=== PATIENT | male | born 1950 | race Two or more races ===

== ENCOUNTER 2017-06-18 06:15 | Day surgery (SDC) | payer MEDICARE, OTHER ==
[~2017-06-18 06:15] MED LIST: ALFU10TA PO
[2017-06-18] MEDS ORDERED: PROPOFOL 200 MG/20 ML BOTTLE IV ONE (06:16)
[2017-06-18] MEDS ORDERED: LIDOCAINE HCL 1% 20 ML VIAL MC ONE (06:16)
[2017-06-18] MEDS ORDERED: IV NORMAL SALINE 1000 ML BAG IV ONE (06:16)
[2017-06-18] MEDS ORDERED: TETRACAINE HCL 0.5% OPHT DROP 2 ML BOTTLE ONE ×2 (06:43→07:01)
[2017-06-18] MEDS ORDERED: FLURBIPROFEN 0.03% OPHT DROP 2.5 ML BOTTLE ONE (06:44)
[2017-06-18] MEDS ORDERED: CIPROFLOXACIN 0.3% OPHT DROP 2.5 ML BOTTLE ONE (06:44)
[2017-06-18] MEDS ORDERED: CYCLOPENTOLATE 1% OPHT DROP 2 ML BOTTLE ONE (06:44)
[2017-06-18] MEDS ORDERED: PHENYLEPHRINE 2.5% OPHT DROP 2 ML BOTTLE ONE (06:44)
[2017-06-18 06:53] LABS: *BILIRUBIN,URIN NEGATIVE (NEGATIVE); *BLOOD, URINE NEGATIVE (NEGATIVE); *CLARITY,URINE CLEAR (CLEAR); *COLOR,URINE YELLOW (YELLOW); *KETONES,URINE NEGATIVE (NEGATIVE); *PROTEIN,URINE NEGATIVE (NEGATIVE); *UROBILINOGEN,URINE 0.2 E.U./dl (NORMAL); LEUKOCYTE ESTERASE ,URINE NEGATIVE (NEGATIVE); NITRITE, URINE NEGATIVE (NEGATIVE); PH,URINE 5.5 (5.0-8.0); UGLUCOSE NEGATIVE (NEGATIVE)
[2017-06-18] MEDS ORDERED: BALANCED SALT IRRIG SOLN COMB1 500 ML, EPINEPHRINE-PF 1:1000 1 MG IO ONE ×2 (07:00)
[2017-06-18] MEDS ORDERED: NEO/POLYMYX B/DEXAME OPHT OINT 3.5 GM TUBE ONE (07:01)
[2017-06-18] MEDS ORDERED: PILOCARPINE 1% OPHT DROP 15 ML BOTTLE ONE (07:01)
[2017-06-18 07:02] LABS: CREATININE 1.3 mg/dL (0.6-1.3); POTASSIUM 3.9 mmol/L (3.5-5.1)
[2017-06-18] MEDS ORDERED: EPINEPHRINE 1 MG/1 ML AMP ONE (07:02)
[2017-06-18] MEDS ORDERED: BALANCED SALT IRRIG SOLN COMB2 15 ML IRRIG.SOLN ONE (07:02)
[2017-06-18] MEDS ORDERED: BUPIVACAINE PF 0.5% 30 ML VIAL ONE (07:02)
[2017-06-18] MEDS ORDERED: HYALURONATE SODIUM 8.5 MG/0.85 ML DISP.SYRIN ONE ×2 (07:02→07:15)
[2017-06-18] MEDS ORDERED: LIDOCAINE HCL-MPF 1% 5 ML VIAL ONE (07:02)
[2017-06-18 07:14] LABS: BACTERIA,URINE NONE SEEN /HPF (NONE SEEN); RBC,URINE NONE SEEN /HPF (0-3); SQUAMOUS EPITHELIAL CELL,UR NONE SEEN /HPF (NONE SEEN); WBC,URINE 0-3 /HPF (0-3)
[2017-06-18] MEDS ORDERED: MIDAZOLAM HCL 2 MG/2 ML VIAL ONE (08:05)
[2017-06-18 08:06] LABS: HEMATOCRIT 42.5 % (40-50); HEMOGLOBIN 14.3 G/DL (14.0-18.0); MEAN CORPUSCULAR HGB CONC 34 g/dL (32.0-37.0); MEAN CORPUSCULAR VOLUME 86.4 FL (82.0-92.0); PLATELET COUNT (AUTO) 317 K/UL (150-450); RED BLOOD CELL COUNT(AUTO) 4.92 MIL/UL (4.7-6.1); WHITE BLOOD COUNT (AUTO) 9.8 K/UL (4.0-11.2)
[2017-06-18 08:07] LABS: BASOPHILS % (AUTO) 0.8 % (0.0-2.0); EOSINOPHILS % (AUTO) 1.7 % (0.0-7.0); LYMPHOCYTES % (AUTO) 30.5 % (20.5-51.5); MONOCYTES % (AUTO) 5.3 % (0.0-11.0); NEUTROPHILS % (AUTO) 61.7 % (38.5-71.5)
== END 2017-06-18 10:18 | disposition home or self-care (01) ==
LOC: DS 06:15
PROVIDERS: ATTEND Dermatology MOHS-Micrographic Surgery
DX: H25.9 Unspecified age-related cataract (principal); N40.0 Benign prostatic hyperplasia without lower urinary tract symptoms; F11.20 Opioid dependence, uncomplicated; F32.9 Major depressive disorder, single episode, unspecified; F41.9 Anxiety disorder, unspecified; Z87.891 Personal history of nicotine dependence; Z98.890 Other specified postprocedural states
CPT/HCPCS: 36415; 66984; 71010; 80048; 81001; 85025; 85730; 93005; A4663; J0171 ×2; J2250; J3490 ×4; J3590; J7030 ×2; J7321 ×2; V2632

== ENCOUNTER 2017-09-17 06:28 | Day surgery (SDC) | payer MEDICARE, OTHER ==
[2017-09-17] MEDS ORDERED: ONDANSETRON 4 MG/2 ML VIAL IV ONE (06:29)
[2017-09-17] MEDS ORDERED: IV LACTATED RINGERS SOLUTION 1,000 ML BAG IV ONE (06:29)
[2017-09-17 07:07] LABS: BASOPHILS # (AUTO) 0.1 K/uL (0.0-8.0); BASOPHILS % (AUTO) 1.2 % (0.0-2.0); EOSINOPHILS # (AUTO) 0.2 K/uL (0.0-0.7); EOSINOPHILS % (AUTO) 2.3 % (0.0-7.0); HEMATOCRIT 41.9 % (36.7-47.1); HEMOGLOBIN 14.3 g/dL (12.5-16.3); LYMPHOCYTES # (AUTO) 3.4 K/uL (20.0-40.0); LYMPHOCYTES % (AUTO) 35.6 % (20.5-51.5); MEAN CORPUSCULAR HEMOGLOBIN 29.8 uug (23.8-33.4); MEAN CORPUSCULAR HGB CONC 34 g/dL (32.5-36.3); MEAN CORPUSCULAR VOLUME 87.6 fL (73.0-96.2); MONOCYTES # (AUTO) 0.6 K/uL (2.0-10.0); MONOCYTES % (AUTO) 6.2 % (0.0-11.0); NEUTROPHILS # (AUTO) 5.3 K/uL (1.8-8.9); NEUTROPHILS % (AUTO) 54.7 % (38.5-71.5); PLATELET COUNT (AUTO) 292 K/uL (152-348); RED BLOOD CELL COUNT(AUTO) 4.78 MIL/uL (4.06-5.63); WHITE BLOOD COUNT (AUTO) 9.6 K/uL (3.6-10.2)
[2017-09-17 07:12] LABS: *BILIRUBIN,URIN NEGATIVE (NEGATIVE); *BLOOD, URINE NEGATIVE (NEGATIVE); *CLARITY,URINE CLEAR (CLEAR); *COLOR,URINE YELLOW (YELLOW); *KETONES,URINE NEGATIVE (NEGATIVE); *PROTEIN,URINE NEGATIVE (NEGATIVE); *UROBILINOGEN,URINE 0.2 E.U./dl (NORMAL); LEUKOCYTE ESTERASE ,URINE NEGATIVE (NEGATIVE); NITRITE, URINE NEGATIVE (NEGATIVE); PH,URINE 5.5 (5.0-8.0); UGLUCOSE NEGATIVE (NEGATIVE)
[2017-09-17 07:16] LABS: CREATININE 1.3 mg/dL (0.6-1.3)
[2017-09-17] MEDS ORDERED: TETRACAINE HCL 0.5% OPHT DROP 2 ML BOTTLE ONE ×2 (07:23→07:30)
[2017-09-17] MEDS ORDERED: FLURBIPROFEN 0.03% OPHT DROP 2.5 ML BOTTLE ONE (07:23)
[2017-09-17] MEDS ORDERED: CYCLOPENTOLATE 1% OPHT DROP 2 ML BOTTLE ONE (07:24)
[2017-09-17] MEDS ORDERED: KETOROLAC 0.5% OPHT DROP 3 ML BOTTLE ONE (07:24)
[2017-09-17] MEDS ORDERED: PHENYLEPHRINE 2.5% OPHT DROP 2 ML BOTTLE ONE (07:24)
[2017-09-17] MEDS ORDERED: CIPROFLOXACIN 0.3% OPHT DROP 2.5 ML BOTTLE ONE (07:26)
[2017-09-17 07:29] LABS: BACTERIA,URINE FEW /HPF (NONE SEEN); RBC,URINE 0-3 /HPF (0-3); SQUAMOUS EPITHELIAL CELL,UR FEW /HPF (NONE SEEN); WBC,URINE 0-3 /HPF (0-3)
[2017-09-17] MEDS ORDERED: PILOCARPINE 1% OPHT DROP 15 ML BOTTLE ONE (07:30)
[2017-09-17] MEDS ORDERED: EPINEPHRINE 1 MG/1 ML AMP ONE (07:30)
[2017-09-17] MEDS ORDERED: NEO/POLYMYX B/DEXAME OPHT OINT 3.5 GM TUBE ONE (07:30)
[2017-09-17] MEDS ORDERED: LIDOCAINE HCL-MPF 1% 5 ML VIAL ONE (07:30)
[2017-09-17] MEDS ORDERED: BALANCED SALT IRRIG SOLN COMB2 15 ML IRRIG.SOLN ONE (07:30)
[2017-09-17] MEDS ORDERED: BUPIVACAINE PF 0.5% 30 ML VIAL ONE (07:31)
[2017-09-17] MEDS ORDERED: HYALURONATE SODIUM 8.5 MG/0.85 ML DISP.SYRIN ONE (07:31)
[2017-09-17] MEDS ORDERED: BALANCED SALT IRRIG SOLN COMB1 500 ML, EPINEPHRINE-PF 1:1000 1 MG IO ONE ×2 (08:00)
[2017-09-17] MEDS ORDERED: MIDAZOLAM HCL 2 MG/2 ML VIAL ONE (08:59)
[2017-09-17] MEDS ORDERED: FENTANYL CITRATE 100 MCG/2 ML AMPUL ONE (08:59)
== END 2017-09-17 10:45 | disposition home or self-care (01) ==
LOC: DS 06:28
PROVIDERS: ATTEND Dermatology MOHS-Micrographic Surgery
DX: H25.89 Other age-related cataract (principal); N40.0 Benign prostatic hyperplasia without lower urinary tract symptoms
CPT/HCPCS: 36415; 85025; 85730; A4663; J0171; J2250; J2405; J3010; J3490; J3590; J7120; J7321; V2632

== ENCOUNTER 2017-10-22 08:00 | Day surgery (SDC) | payer MEDICARE, OTHER ==
[2017-10-22] MEDS ORDERED: IV NORMAL SALINE 1000 ML BAG IV ONE (08:01)
[2017-10-22] MEDS ORDERED: PROPOFOL 200 MG/20 ML BOTTLE IV ONE (08:01)
[2017-10-22] MEDS ORDERED: ONDANSETRON 4 MG/2 ML VIAL IV ONE (08:01)
[2017-10-22] MEDS ORDERED: TETRACAINE HCL 0.5% OPHT DROP 2 ML BOTTLE ONE (08:26)
[2017-10-22 08:32] LABS: *BILIRUBIN,URIN NEGATIVE (NEGATIVE); *BLOOD, URINE NEGATIVE (NEGATIVE); *CLARITY,URINE CLEAR (CLEAR); *COLOR,URINE YELLOW (YELLOW); *KETONES,URINE NEGATIVE (NEGATIVE); *PROTEIN,URINE NEGATIVE (NEGATIVE); *UROBILINOGEN,URINE 0.2 E.U./dl (NORMAL); LEUKOCYTE ESTERASE ,URINE NEGATIVE (NEGATIVE); NITRITE, URINE NEGATIVE (NEGATIVE); PH,URINE 5.5 (5.0-8.0); UGLUCOSE NEGATIVE (NEGATIVE)
[2017-10-22 08:36] LABS: BASOPHILS # (AUTO) 0.1 K/uL (0.0-8.0); BASOPHILS % (AUTO) 1.4 % (0.0-2.0); EOSINOPHILS # (AUTO) 0.2 K/uL (0.0-0.7); EOSINOPHILS % (AUTO) 2.1 % (0.0-7.0); HEMATOCRIT 39.2 % (36.7-47.1); HEMOGLOBIN 13.5 g/dL (12.5-16.3); LYMPHOCYTES # (AUTO) 2.9 K/uL (20.0-40.0); MEAN CORPUSCULAR HEMOGLOBIN 30.1 uug (23.8-33.4); MEAN CORPUSCULAR HGB CONC 34 g/dL (32.5-36.3); MEAN CORPUSCULAR VOLUME 87.4 fL (73.0-96.2); MONOCYTES # (AUTO) 0.5 K/uL (2.0-10.0); MONOCYTES % (AUTO) 5.5 % (0.0-11.0); NEUTROPHILS # (AUTO) 5.3 K/uL (1.8-8.9); PLATELET COUNT (AUTO) 308 K/uL (152-348); RED BLOOD CELL COUNT(AUTO) 4.48 MIL/uL (4.06-5.63)
[2017-10-22 08:40] LABS: CREATININE 1.1 mg/dL (0.6-1.3); POTASSIUM 4.1 mmol/L (3.5-5.1)
[2017-10-22] MEDS ORDERED: BUPIVACAINE/EPI PF 0.5% 10 ML VIAL ONE (08:44)
[2017-10-22] MEDS ORDERED: EPINEPHRINE 1 MG/1 ML AMP ONE (08:45)
[2017-10-22] MEDS ORDERED: LIDOCAINE HCL 2% 20 ML VIAL ONE (08:45)
[2017-10-22 08:48] LABS: BACTERIA,URINE FEW /HPF (NONE SEEN); RBC,URINE 0-3 /HPF (0-3); SQUAMOUS EPITHELIAL CELL,UR FEW /HPF (NONE SEEN); WBC,URINE 0-3 /HPF (0-3)
[2017-10-22] MEDS ORDERED: BALANCED SALT IRRIG SOLN COMB2 15 ML IRRIG.SOLN ONE (09:35)
[2017-10-22] MEDS ORDERED: FENTANYL CITRATE 100 MCG/2 ML AMPUL ONE (09:36)
[2017-10-22] MEDS ORDERED: MIDAZOLAM HCL 2 MG/2 ML VIAL ONE (09:36)
[2017-10-22] MEDS ORDERED: NEO/POLYMYX B/DEXAME OPHT OINT 3.5 GM TUBE ONE (10:01)
== END 2017-10-22 11:35 | disposition home or self-care (01) ==
LOC: DS 08:00
PROVIDERS: ATTEND Dermatology MOHS-Micrographic Surgery
DX: D17.0 Benign lipomatous neoplasm of skin and subcutaneous tissue of head, face and neck (principal); Z87.891 Personal history of nicotine dependence
CPT/HCPCS: 36415; 85025; 85730; 93005; A4663; J0171; J2250; J2405; J3010; J3490; J7030; J7120

== ENCOUNTER 2019-02-09 10:57 | Emergency (ER) | payer MEDICARE, OTHER ==
[~2019-02-09] VITALS: Ht 170.2 cm; Wt 81.6 kg
[2019-02-09] MEDS ORDERED: IBUP-1957 PO (11:10)
[2019-02-09] MEDS ORDERED: LORAZEPAM 2 MG/1 ML VIAL IV ONE (11:30)
[2019-02-09] MEDS ORDERED: KETAMINE HCL 500 MG/10 ML INJ IV ONE (11:30)
[2019-02-09] MEDS ORDERED: LORAZEPAM 2 MG/1 ML VIAL ONE (11:40)
[2019-02-09] MEDS ORDERED: FENTANYL CITRATE 100 MCG/2 ML AMPUL IV ONE ×2 (11:45→13:30)
[2019-02-09] MEDS ORDERED: FENTANYL CITRATE 100 MCG/2 ML AMPUL ONE ×2 (11:49→13:27)
[2019-02-09 11:52] LABS: BASOPHILS # (AUTO) 0.1 K/uL (0.0-8.0); BASOPHILS % (AUTO) 1.3 % (0.0-2.0); EOSINOPHILS # (AUTO) 0.3 K/uL (0.0-0.7); EOSINOPHILS % (AUTO) 4.4 % (0.0-7.0); HEMATOCRIT 38.7 % (36.7-47.1); HEMOGLOBIN 12.8 g/dL (12.5-16.3); LYMPHOCYTES % (AUTO) 28.1 % (20.5-51.5); MEAN CORPUSCULAR HEMOGLOBIN 29.4 uug (23.8-33.4); MEAN CORPUSCULAR HGB CONC 33 g/dL (32.5-36.3); MONOCYTES # (AUTO) 0.4 K/uL (2.0-10.0); NEUTROPHILS # (AUTO) 4.3 K/uL (1.8-8.9); NEUTROPHILS % (AUTO) 61.2 % (38.5-71.5); PLATELET COUNT (AUTO) 277 K/uL (152-348); RED BLOOD CELL COUNT(AUTO) 4.35 MIL/uL (4.06-5.63)
[2019-02-09 12:00] LABS: CREATININE 1.5 mg/dL (0.6-1.3); POTASSIUM 4.1 mmol/L (3.5-5.1)
[2019-02-09 12:06] LABS: BILIRUBIN,DIRECT 0.1 mg/dL (0.0-0.2); BILIRUBIN,TOTAL 0.3 mg/dL (0.2-1.0); TOTAL PROTEIN, SERUM 7.1 g/dL (6.4-8.2)
--- NOTE | 2019-02-09 14:15 | NUR ---
Pt ambulated to [facility], states his pain is 10/10 and is requesting 2mg of Dilaudid. notified. also spoke with Cristi Atkinson via telephone regarding possible admission to m/s for intractable back pain.
[2019-02-09 14:18] VITALS: BP 134/73
[2019-02-09] MEDS ORDERED: HYDROMORPHONE 1 MG/1 ML DISP.SYRIN IV ONE (14:30)
[2019-02-09] MEDS ORDERED: HYDROMORPHONE 2 MG/1 ML DISP.SYRIN ONE (14:38)
--- NOTE | 2019-02-09 16:05 | NUR ---
IV removed. Catheter intact and site benign. Pressure and 4x4 gauze applied to site. No bleeding noted.
--- NOTE | 2019-02-09 16:07 | NUR ---
Patient discharged to home in stable conditon. Written and verbal after care instructions given. Patient verbalizes understanding of instructions. Stressed follow up with pmd. Pt ambulated out of ER with steady gait.
== END 2019-02-09 16:10 | disposition home or self-care (01) ==
LOC: ER 10:57
DX: M54.5 Low back pain (principal); R20.2 Paresthesia of skin; Z79.1 Long term (current) use of non-steroidal anti-inflammatories (NSAID); Z79.899 Other long term (current) drug therapy
CPT/HCPCS: 36415; 71045; 72131; 80048; 80076; 84484; 85025; 85730; 93005; 96374; 96375; 96376; 99284; J1170; J2060; J3010 ×2; 70030-TC; A4663; J7030

== ENCOUNTER 2019-10-24 16:50 | Emergency (ER) | payer MEDICARE, OTHER ==
[~2019-10-24] VITALS: Ht 170.2 cm; Wt 76.2 kg
[~2019-10-24 16:50] MED LIST changes: +IBUP-1957 PO
[2019-10-24] MEDS ORDERED: ASPI81TA31 PO (17:31)
[2019-10-24] MEDS ORDERED: BUPR300T52 PO (17:31)
[2019-10-24] MEDS ORDERED: QUET50TA PO (17:31)
[2019-10-24] MEDS ORDERED: FENO48TA6 PO (17:31)
[2019-10-24] MEDS ORDERED: BUSP5TAB3 PO (17:38)
--- NOTE | 2019-10-24 17:46 | NUR ---
is at bedside, MSE in progress
[2019-10-24] MEDS ORDERED: IV NORMAL SALINE 1000 ML BAG IV ONE (18:00)
[2019-10-24] MEDS ORDERED: MECLIZINE HCL 25 MG TABLET PO ONE (18:00)
[2019-10-24] MEDS ORDERED: ONDANSETRON 4 MG/2 ML VIAL IV ONE (18:00)
[2019-10-24 18:04] LABS: BASOPHILS # (AUTO) 0.1 K/uL (0.0-8.0); BASOPHILS % (AUTO) 1.1 % (0.0-2.0); EOSINOPHILS # (AUTO) 0.4 K/uL (0.0-0.7); HEMATOCRIT 39.3 % (36.7-47.1); HEMOGLOBIN 12.8 g/dL (12.5-16.3); LYMPHOCYTES # (AUTO) 2.9 K/uL (20.0-40.0); LYMPHOCYTES % (AUTO) 31.8 % (20.5-51.5); MEAN CORPUSCULAR HEMOGLOBIN 28.6 uug (23.8-33.4); MEAN CORPUSCULAR HGB CONC 33 g/dL (32.5-36.3); MEAN CORPUSCULAR VOLUME 87.7 fL (73.0-96.2); MONOCYTES # (AUTO) 0.6 K/uL (2.0-10.0); MONOCYTES % (AUTO) 6.8 % (0.0-11.0); NEUTROPHILS # (AUTO) 5.1 K/uL (1.8-8.9); NEUTROPHILS % (AUTO) 56.3 % (38.5-71.5); PLATELET COUNT (AUTO) 302 K/uL (152-348); RED BLOOD CELL COUNT(AUTO) 4.48 MIL/uL (4.06-5.63)
[2019-10-24] MEDS ORDERED: MECLIZINE HCL 25 MG TABLET ONE (18:06)
[2019-10-24] MEDS ORDERED: ONDANSETRON 4 MG/2 ML VIAL ONE (18:06)
[2019-10-24 18:12] LABS: CREATININE 1.4 mg/dL (0.6-1.3); POTASSIUM 3.9 mmol/L (3.5-5.1)
[2019-10-24 18:18] LABS: BILIRUBIN,DIRECT 0.1 mg/dL (0.0-0.2); BILIRUBIN,TOTAL 0.3 mg/dL (0.2-1.0); TOTAL PROTEIN, SERUM 7.4 g/dL (6.4-8.2)
--- NOTE | 2019-10-24 18:56 | NUR ---
Hands off report given to ROSSANA Laboy.
--- NOTE | 2019-10-24 20:05 | NUR ---
Patient discharged to home in stable conditon. Written and verbal after care instructions given. Patient verbalizes understanding of instructions. Pt ambulated out of ER with steady gait, no acute signs of distress, VSS, all belongings taken, IV site discontinued.
[2019-10-24 20:06] VITALS: BP 141/80
== END 2019-10-24 20:06 | disposition home or self-care (01) ==
LOC: ER 16:50
DX: H81.10 Benign paroxysmal vertigo, unspecified ear (principal); F32.9 Major depressive disorder, single episode, unspecified; Z79.82 Long term (current) use of aspirin; Z79.899 Other long term (current) drug therapy
CPT/HCPCS: 36415; 70450; 71045; 80048; 80076; 84484; 85025; 85730; 93005; 96361; 96374; 99284; J2405; 70030-TC; A4663; J7030; J8597

== ENCOUNTER 2020-07-02 19:58 | Emergency (ER) | payer MEDICARE, OTHER ==
[~2020-07-02] VITALS: Ht 170.2 cm; Wt 81.6 kg
[~2020-07-02 19:58] MED LIST changes: +ASPI81TA31 PO; +BUPR300T52 PO; +BUSP5TAB3 PO; +FENO48TA6 PO; -IBUP-1957 PO; +QUET50TA PO
[2020-07-02] MEDS ORDERED: OMEG1CAP40 PO (20:12)
[2020-07-02] MEDS ORDERED: [UNRECOGNIZED DRUG - REMARK] (20:12)
--- NOTE | 2020-07-02 20:30 | NUR ---
Dr. Rasmussen at bedside for MSE.
--- NOTE | 2020-07-02 20:52 | NUR ---
Patient discharged to home in stable condition. Written and verbal after care instructions given. Patient verbalizes understanding of instructions. Stressed follow up or return to ER for worsening s/s. Patient out of ER with steady gait, no acute signs of distress, VSS, all belongings taken.
[2020-07-02 20:54] VITALS: BP 140/80
== END 2020-07-02 20:54 | disposition home or self-care (01) ==
LOC: ER 19:58
DX: F45.8 Other somatoform disorders (principal); G89.29 Other chronic pain; M54.9 Dorsalgia, unspecified; F41.9 Anxiety disorder, unspecified
CPT/HCPCS: 93005; A4663

== ENCOUNTER 2021-08-02 10:59 | Emergency (ER) | payer MEDICARE, OTHER ==
[~2021-08-02] VITALS: Ht 226.1 cm; Wt 81.6 kg
[~2021-08-02 10:59] MED LIST changes: +OMEG1CAP40 PO; +[UNRECOGNIZED DRUG - REMARK]
--- NOTE | 2021-08-02 11:19 | NUR ---
[email or web address] evaluating patient.
[2021-08-02] MEDS ORDERED: CETI-90 PO (11:24)
[2021-08-02] MEDS ORDERED: LORA10TA7 PO (11:24)
[2021-08-02] MEDS ORDERED: TRIA15CR2 TP (11:24)
--- NOTE | 2021-08-02 11:32 | NUR ---
Patient discharged to home in stable condition with brisk steady gait. Written and verbal after care instructions given to patient. Patient verbalized understanding and compliance of instructions. Stressed follow up with primary doctor or return to ER for worsening s/s.
== END 2021-08-02 11:32 | disposition home or self-care (01) ==
LOC: ER 10:59
DX: L20.9 Atopic dermatitis, unspecified (principal); G89.29 Other chronic pain; M54.9 Dorsalgia, unspecified; F32.A Depression, unspecified
CPT/HCPCS: A4663

== ENCOUNTER 2022-12-13 10:45 | Emergency (ER) | payer MEDICARE, OTHER ==
[~2022-12-13] VITALS: Ht 170.2 cm; Wt 81.6 kg
[~2022-12-13 10:45] MED LIST changes: +CETI-90 PO; +LORA10TA7 PO; +TRIA15CR2 TP
--- NOTE | 2022-12-13 10:58 | NUR ---
PT IS IN ROOM #1B. DR MEDINA EVALUATED THE PT.
[2022-12-13] MEDS ORDERED: MORPHINE SULFATE 4 MG/1 ML DISP.SYRIN IV ONE (11:30)
[2022-12-13] MEDS ORDERED: ACETAMINOPHEN 325 MG TABLET PO ONE (11:30)
[2022-12-13] MEDS ORDERED: ONDANSETRON 4 MG/2 ML VIAL IV ONE (11:30)
[2022-12-13] MEDS ORDERED: KETOROLAC TROMETHAMINE 15 MG INJ IVP ONE (11:30)
[2022-12-13] MEDS ORDERED: DIAZEPAM 10 MG/2 ML DISP.SYRIN IV ONE (11:30)
[2022-12-13] MEDS ORDERED: IV NORMAL SALINE 1000 ML BAG IV ONE (11:30)
[2022-12-13] MEDS ORDERED: MORPHINE SULFATE 4 MG/1 ML DISP.SYRIN ONE (11:31)
[2022-12-13] MEDS ORDERED: DIAZEPAM 10 MG/2 ML DISP.SYRIN ONE (11:32)
[2022-12-13] MEDS ORDERED: ACETAMINOPHEN 325 MG TABLET ONE (11:33)
[2022-12-13] MEDS ORDERED: KETOROLAC TROMETHAMINE 15 MG INJ ONE (11:33)
[2022-12-13] MEDS ORDERED: ONDANSETRON 4 MG/2 ML VIAL ONE (11:33)
[2022-12-13] MEDS ORDERED: IBUP-1955 PO (11:51)
[2022-12-13] MEDS ORDERED: PRED20TA PO (11:51)
[2022-12-13] MEDS ORDERED: CYCL5TAB PO (11:51)
[2022-12-13] MEDS ORDERED: TRAM50TA2 PO (11:51)
--- NOTE | 2022-12-13 15:51 | NUR ---
PT WAS D/C'd TO HOME. D/C INSTRUCTIONS GIVEN TO THE PT BY DR MEDINA.
[2022-12-13 15:52] VITALS: BP 143/84
== END 2022-12-13 15:53 | disposition home or self-care (01) ==
LOC: ER 10:45
DX: M51.17 Intervertebral disc disorders with radiculopathy, lumbosacral region (principal); G89.29 Other chronic pain; E78.5 Hyperlipidemia, unspecified; I10 Essential (primary) hypertension; Z98.49 Cataract extraction status, unspecified eye; F32.A Depression, unspecified; Z79.899 Other long term (current) drug therapy; Z79.82 Long term (current) use of aspirin; F41.9 Anxiety disorder, unspecified
CPT/HCPCS: 99285; 96374; 72131; 96375; 96361; J3360; J1885; J2405; J2270; J7040; A4663

== ENCOUNTER 2024-03-22 14:08 | Emergency (ER) | payer MEDICARE, OTHER ==
[~2024-03-22] VITALS: Ht 170.2 cm; Wt 81.6 kg
[~2024-03-22 14:08] MED LIST changes: +CYCL5TAB PO; +IBUP-1955 PO; +PRED20TA PO; +TRAM50TA2 PO
[2024-03-22 14:49] LABS: BASOPHILS # (AUTO) 0.1 K/UL (0.0-0.2); BASOPHILS % (AUTO) 1.4 % (0.0-2.0); EOSINOPHILS # (AUTO) 0.4 K/uL (0.0-0.7); EOSINOPHILS % (AUTO) 5.2 % (0.0-7.0); HEMOGLOBIN 13.1 g/dL (12.5-16.3); LYMPHOCYTES # (AUTO) 2.7 K/uL (0.8-4.8); LYMPHOCYTES % (AUTO) 33.2 % (20.5-51.5); MEAN CORPUSCULAR HEMOGLOBIN 29.6 uug (23.8-33.4); MEAN CORPUSCULAR HGB CONC 34 g/dL (32.5-36.3); MEAN CORPUSCULAR VOLUME 88.4 fL (73.0-96.2); MONOCYTES # (AUTO) 0.6 K/uL (0.1-1.30); MONOCYTES % (AUTO) 7.2 % (0.0-11.0); NEUTROPHILS # (AUTO) 4.3 K/uL (1.8-8.9); PLATELET COUNT (AUTO) 265 K/uL (152-348); RED BLOOD CELL COUNT(AUTO) 4.41 MIL/uL (4.06-5.63); RED CELL DISTRIBUTION WIDTH 13.1 % (12.1-16.2); WHITE BLOOD COUNT (AUTO) 8.1 K/uL (3.6-10.2)
[2024-03-22] MEDS ORDERED: ASPIRIN 81 MG TAB.CHEW ONE (14:49)
[2024-03-22] MEDS: ASPIRIN 81 MG TAB.CHEW PO ONE (14:51)
[2024-03-22 14:52] LABS: DIFFERENTIAL COMMENT 1
[2024-03-22 14:58] LABS: CARBON DIOXIDE 24 mmol/L (21-32); CHLORIDE 106 mmol/L (98-107); CREATININE 1.3 mg/dL (0.6-1.3); GLUCOSE 98 mg/dL (74-106); POTASSIUM 4.2 mmol/L (3.5-5.1); SODIUM SERUM 142 mmol/L (136-145); UREA NITROGEN, BLOOD 24 mg/dL (7-18)
[2024-03-22 15:11] LABS: ALANINE AMINOTRANSFERASE 26 U/L (16-63); ALKALINE PHOSPHATASE 28 U/L (50-136); ASPARTATE AMINOTRANSFERASE 8 U/L (15-37); BILIRUBIN,DIRECT 0.1 mg/dL (0.0-0.2); BILIRUBIN,TOTAL 0.5 mg/dL (0.2-1.0); TOTAL PROTEIN, SERUM 7.5 g/dL (6.4-8.2)
[2024-03-22] MEDS ORDERED: MECL-115 PO (16:44)
[2024-03-22 17:48] VITALS: BP 142/75; TEMP 98.2; O2SAT 99
== END 2024-03-22 17:50 | disposition home or self-care (01) ==
LOC: ER 14:19
DX: R10.12 Left upper quadrant pain (principal); H81.22 Vestibular neuronitis, left ear; R07.89 Other chest pain; I10 Essential (primary) hypertension; E78.5 Hyperlipidemia, unspecified; Z79.1 Long term (current) use of non-steroidal anti-inflammatories (NSAID); Z79.899 Other long term (current) drug therapy; Z79.82 Long term (current) use of aspirin
CPT/HCPCS: 36415; 71045; 83735; 84484; 85025; 93005; A4606; A4663